=== PATIENT | female | born 1945 | race African-American/Black ===

== ENCOUNTER → 2018-12-22 | Outpatient (CLI) | payer MEDICARE ==
--- NOTE | 2018-12-22 16:35 | KCIC ---
Bilateral digital screening mammograms with 3-D tomosynthesis: Reason for examination: Routine screening. Comparison is made to previous studies dated 03/15/2016 and 02/14/2015. Bilateral mammograms in CC and oblique projections were obtained with 2-D imaging and 3-D tomosynthesis imaging on a Siemens Inspiration unit and reviewed on the workstation. Interpretation was made with the benefit of CAD. The skin and nipples show no abnormalities. No abnormal axillary lymph nodes are seen. The breast parenchyma shows scattered fatty and fibroglandular density. (Breast density: Category B.) There continues to be small nodular density in the 5:00 position of the right breast anteriorly. There are no new dominant masses, suspicious calcifications or architectural distortion. Benign calcifications are present. Impression: No evidence of malignancy. Recommend routine screening. BI-RAD Category 2: Benign. "Our facility is accredited by the [employer] Mammography Program." This patient's information has been entered into a reminder system for the patient to be notified with the results of her examination and a target date for the next mammogram. Electronically signed by: Miryam Guzman MD (12/22/2018 4:32 PM) [id number]
--- NOTE | 2018-12-22 16:45 | KCIC ---
INDICATION: Osteoporosis screening. Postmenopausal screening COMPARISON: April 2016 TECHNIQUE: Bone densitometry was performed through the lumbar spine and left proximal femurs. FINDINGS: Lumbar Spine: L1-4 BMD: 1.23 T-Score: 1.7 Increased by 2 percent from prior. Femoral Neck: BMD: 0.78 T-Score: -1.3 Decreased by 0.6 percent from prior IMPRESSION: 1. Lumbar spine falls within the normal range. 2. Left femoral neck falls within the osteopenic range. Electronically signed by: Domingo Ordoñez MD (12/22/2018 4:41 PM) [facility]
== END | disposition home or self-care (01) ==
LOC: KCIC DEXA 09:59
PROVIDERS: ATTEND Physician Assistant Surgical
DX: Z12.31 Encounter for screening mammogram for malignant neoplasm of breast (principal); Z13.820 Encounter for screening for osteoporosis; N64.89 Other specified disorders of breast; M85.88 Other specified disorders of bone density and structure, other site
CPT/HCPCS: 77063; 77067; 77080

== ENCOUNTER → 2021-04-05 | Outpatient (CLI) | payer MEDICARE ==
--- NOTE | 2021-04-05 10:38 | KCIC ---
INDICATION: Screening for osteopenia/osteoporosis. Reason: OSTEOPENIA OF FEMORAL NECK, POST MENOPAUS AL / Spl. Instructions: / History: COMPARISON: 12/22/2018 TECHNIQUE: Bone densitometry was performed through the lumbar spine and proximal femur. IMPRESSION: Lumbar Spine: BMD: 1.19 T-Score: 1.3 Range: Normal. Decreased by 4 percent from prior. Proximal Femur: BMD: 0.69 T-Score: -2.0 Range: Osteopenic. Decreased by 11 percent from prior World Health Organization Criteria for Bone Density: T-Score: > -1.0: Normal Range < -1.0 to -2.5: Osteopenic Range < -2.5: Osteoporotic Range Electronically signed by: Domingo Ordoñez MD (04/05/2021 10:36 AM) [id number]
== END ==
LOC: KCIC DEXA 09:50
PROVIDERS: ATTEND Family Medicine
DX: M85.88 Other specified disorders of bone density and structure, other site (principal)
CPT/HCPCS: 77080